=== PATIENT | male | born 1990 | race African-American/Black ===

== ENCOUNTER 2016-08-10 23:21 | Emergency (ER) | payer MEDICAID, OTHER ==
[~2016-08-10] VITALS: Ht 180.3 cm; Wt 108.9 kg
[2016-08-11 00:27] LABS: Basophils # (auto) 0.1 uL; Eosinophils # (auto) 0.4 uL; Eosinophils % (auto) 3.6 % (0.0-7.0); Lymphocytes % (auto) 35.5 % (10.0-50.0); Mean Corpuscular Hemoglobin 29.4 pg (28.0-32.0); Mean Corpuscular Hgb Conc. 32.6 g/dL (32.0-36.0); Mean Corpuscular Volume 90.3 fL (80.0-100.0); Mean Platelet Volume 8.2 fL (7.4-10.4); Monocytes # (auto) 1.1 uL; Monocytes % (auto) 9.8 % (0.0-12.0); Neutrophils # (auto) 5.6 uL; Neutrophils % (auto) 50.1 % (37.0-80.0); Platelet Count (auto) 306 10^3/uL (140-450); Red Cell Distribution Width 12.8 % (11.6-16.0); SUSPECT SEE PRINTOUT; White Blood Cell 11.2 10^3/uL (4.4-10.8)
[2016-08-11 00:29] LABS: Urine Bilirubin Negative (Negative); Urine Blood Negative /uL (Negative); Urine Color Yellow (Yellow); Urine Glucose Normal (Normal); Urine Hyaline Cast FEW /lpf (0 - 2); Urine Ketone Negative (Negative); Urine Mucus FEW (None Seen); Urine Nitrite Negative (Negative); Urine RBC <1 /hpf (0 - 3); Urine Squamous Epithelial Cell FEW /hpf (<5)
[2016-08-11 00:40] LABS: INR 1.09 (0.9-1.15); Partial Thromboplastin Time 29.8 sec (22.64-33.71); Prothrombin Time 11.9 sec (9.37-12.3)
[2016-08-11 00:48] LABS: Albumin 3.6 g/dL (3.4-5.0); B-Type Natriuretic Peptide 79.5 pg/mL (0-100); Calcium 8.3 mg/dL (8.5-10.1); Temperature: 23.1 C (20.0-25.0)
[2016-08-11 00:50] LABS: BUN/Creatinine Ratio 13.1
[2016-08-11 00:55] LABS: Bilirubin, Total 0.6 mg/dL (0.2-1.0); Total Protein 7.8 g/dL (6.4-8.2)
[2016-08-11] MEDS ORDERED: ALBUTEROL SULF 2.5 MG/0.5ML(0.5%) NEB SOLN NEB ONE ×2 (05:00→08:00)
[2016-08-11] MEDS ORDERED: IPRATROPIUM BROM 0.5 MG/2.5ML INH SOL NEB ONE ×2 (05:00→08:00)
[2016-08-11] MEDS ORDERED: cefTRIAXone 1GM/50ML D5W 50 ML IV ONE (08:00)
[2016-08-11] MEDS ORDERED: methylPREDNISolone SOD SUCC 125 MG/2 ML VL IV ONE (08:00)
[2016-08-11 08:34] VITALS: BP 133/97
== END 2016-08-11 11:35 | disposition home or self-care (01) ==
LOC: ER 23:21
DX: J45.901 Unspecified asthma with (acute) exacerbation (principal); I10 Essential (primary) hypertension
CPT/HCPCS: 36415; 71010; 80053; 80307; 81001; 83880; 84484; 85025; 85610; 85730; 93005; 94640; 96365; 96375; 99285; J0696; J2930